=== PATIENT | male | born 1985 | race African-American/Black ===

== ENCOUNTER 2019-10-20 01:58 | Emergency (ER) | payer MEDICAID ==
[2019-10-20] MEDS ORDERED: OXYcodone/APAP 5/325MG TABLET ONE (02:46)
--- NOTE | 2019-10-20 04:39 | NUR ---
SEE PAPER CHART
== END 2019-10-20 04:41 ==
LOC: ED 04:35
DX: K02.9 Dental caries, unspecified (principal)
CPT/HCPCS: 99283